=== PATIENT | female | born 1950 | race Caucasian/White ===

== ENCOUNTER 2023-08-09 19:06 | Emergency (ER) | payer OTHER, MEDICARE, SELFPAY ==
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
[2023-08-09 19:17] VITALS: BP 162/100; BP 189/99; PULSE 86; PULSE 91; RESP 18; TEMP 36.5; O2SAT 98; BMI 24.2
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
[2023-08-09] MEDS: Ibuprofen 400 MG TABLET PO (23:02)
[2023-08-09] MEDS: Acetaminophen 325 MG TABLET 975 MG PO (23:02)
[2023-08-09 23:05] VITALS: BP 160/90; PULSE 65; RESP 16; TEMP 36.9; O2SAT 97
[2023-08-10 01:30] VITALS: BP 144/71; PULSE 75; RESP 16; TEMP 36.3; O2SAT 97
[2023-08-10 01:35] VITALS: BP 144/71; PULSE 75; RESP 16; TEMP 36.3; O2SAT 97
== END 2023-08-10 01:37 | disposition home or self-care (01) ==
PROVIDERS: Emergency Provider Emergency Medicine Emergency Medical Services; PCP Internal Medicine
DX: S20.213A Contusion of bilateral front wall of thorax, initial encounter (principal); R07.81 Pleurodynia; M54.6 Pain in thoracic spine; I10 Essential (primary) hypertension; V43.52XA Car driver injured in collision with other type car in traffic accident, initial encounter; Y93.9 Activity, unspecified; Y92.410 Unspecified street and highway as the place of occurrence of the external cause; Y99.8 Other external cause status
CPT/HCPCS: 71046; 71250; 99284